=== PATIENT | male | born 1995 | race Caucasian/White ===

== ENCOUNTER 2018-03-27 18:41 | Emergency (ER) | payer SELFPAY ==
[~2018-03-27] VITALS: Ht 188 cm; Wt 107.7 kg
[2018-03-27 18:49] VITALS: BP 139/92; TEMP 98.6
[2018-03-27] MEDS ORDERED: AMOXICILLIN 50500 MG PO (19:49)
[2018-03-27] MEDS ORDERED: FLEXERIL 1010 MG/TAB PO (19:49)
[2018-03-27 19:54] VITALS: PULSE 91
== END 2018-03-27 19:56 | disposition home or self-care (01) ==
LOC: COL.ER 18:41
DX: K08.89 Other specified disorders of teeth and supporting structures (principal)

== ENCOUNTER 2018-08-25 19:10 | Emergency (ER) | payer SELFPAY ==
[~2018-08-25] VITALS: Ht 188 cm; Wt 115.0 kg
[~2018-08-25 19:10] MED LIST: AMOXICILLIN 50500 MG PO; FLEXERIL 1010 MG/TAB PO
[2018-08-25 19:15] VITALS: TEMP 97.2
[2018-08-25 19:46] LABS: BASO # 0.1 (0.0-0.2); EOS # 0.6 (0.0-0.7); EOS % 6.5 % (0-4.0); GRAN # 5.2 (1.4-6.5); GRAN % 57.5 % (42.2-75.2); HEMATOCRIT 45.8 % (42.0-52.0); HEMOGLOBIN 16.1 g/dl (13.5-18.0); LYMPH # 2.3 (1.2-3.4); LYMPH % 25.4 % (20.0-51.0); MEAN CELL VOLUME 90 fl (80.0-100.0); MEAN CORPUSCULAR HEMOGLOBIN 32 pg (27.0-31.0); MEAN CORPUSCULAR HGB CONC 35 g/dl (33.0-37.0); MEAN PLATELET VOLUME 11.4 fl (7.4-10.4); MONO # 0.9 (0.1-0.6); MONO % 9.4 % (1.7-9.3); PLATELET COUNT 225 K/mm3 (130-400); RED BLOOD COUNT 5.07 M/mm3 (4.20-5.60); REDCELL DISTRIBUTION WIDTH-CV 12.6 % (11.5-14.5)
[2018-08-25 20:00] LABS: ALBUMIN 4.4 gm/dL (3.5-5.0); BILIRUBIN,TOTAL 0.5 mg/dL (0.0-1.0); CALCIUM 9.4 mg/dL (8.4-10.2); CREATININE, serum 0.94 mg/dL (0.66-1.25); TOTAL PROTEIN 7.6 gm/dL (6.4-8.2)
[2018-08-25] MEDS ORDERED: PROTONIX 40MG T40 MG PO (20:13)
[2018-08-25] MEDS ORDERED: CARAFATE 1GM1 G PO (20:13)
[2018-08-25 20:44] VITALS: BP 132/66; PULSE 69
== END 2018-08-25 20:45 | disposition home or self-care (01) ==
LOC: COL.ER 19:10
PROVIDERS: Emergency Medicine
DX: R10.13 Epigastric pain (principal); F17.210 Nicotine dependence, cigarettes, uncomplicated; Z90.49 Acquired absence of other specified parts of digestive tract
CPT/HCPCS: C9113; J1885; J2405; J7030

== ENCOUNTER 2019-04-29 16:22 | Emergency (ER) | payer SELFPAY ==
[~2019-04-29] VITALS: Ht 188 cm; Wt 119.5 kg
[~2019-04-29 16:22] MED LIST changes: +CARAFATE 1GM1 G PO; +PROTONIX 40MG T40 MG PO
[2019-04-29 17:07] VITALS: BP 113/72; TEMP 101.6
[2019-04-29 17:33] LABS: STREP SCREEN POSITIVE
[2019-04-29 19:05] VITALS: PULSE 91
== END 2019-04-29 19:24 | disposition home or self-care (01) ==
LOC: COL.ER 16:22
PROVIDERS: Emergency Medicine
DX: J02.0 Streptococcal pharyngitis (principal); Z90.49 Acquired absence of other specified parts of digestive tract
CPT/HCPCS: J0561

== ENCOUNTER 2019-05-04 11:46 | Emergency (ER) | payer SELFPAY ==
[~2019-05-04] VITALS: Ht 188 cm; Wt 119.5 kg
[2019-05-04 12:03] VITALS: BP 131/85
[2019-05-04 12:57] LABS: STREP SCREEN NEGATIVE
[2019-05-04 13:07] LABS: MONOSCREEN NEGATIVE
[2019-05-04] MEDS ORDERED: MEDROL 4MG DOSPA4 MG PO (13:23)
[2019-05-04 13:33] VITALS: PULSE 79; TEMP 98
== END 2019-05-04 13:33 | disposition home or self-care (01) ==
LOC: COL.ER 11:46
PROVIDERS: Physician Assistant
DX: J06.9 Acute upper respiratory infection, unspecified (principal); J03.90 Acute tonsillitis, unspecified; J04.0 Acute laryngitis
CPT/HCPCS: J1885

== ENCOUNTER 2019-08-28 14:05 | Emergency (ER) | payer SELFPAY ==
[~2019-08-28] VITALS: Ht 188 cm; Wt 117.7 kg
[~2019-08-28 14:05] MED LIST changes: +MEDROL 4MG DOSPA4 MG PO
[2019-08-28] MEDS ORDERED: AMOXICILLIN875 MG PO (15:50)
[2019-08-28] MEDS ORDERED: NORCO 325 MG-51 TAB PO (15:50)
[2019-08-28 16:07] VITALS: BP 136/98; PULSE 69; TEMP 98.4
== END 2019-08-28 16:08 | disposition home or self-care (01) ==
LOC: COL.ER 14:05
DX: K02.9 Dental caries, unspecified (principal); Z90.89 Acquired absence of other organs
CPT/HCPCS: J1885

== ENCOUNTER 2019-09-17 15:49 | Emergency (ER) | payer SELFPAY ==
[~2019-09-17] VITALS: Ht 188 cm; Wt 113.2 kg
[~2019-09-17 15:49] MED LIST changes: +AMOXICILLIN875 MG PO; +NORCO 325 MG-51 TAB PO
[2019-09-17 16:00] VITALS: BP 109/68; TEMP 99.1
[2019-09-17 16:45] LABS: BASO % 0.2 % (0.0-2.0); EOS % 0.3 % (0-4.0); GRAN % 88.1 % (42.2-75.2); HEMATOCRIT 49.9 % (42.0-52.0); HEMOGLOBIN 17.4 g/dl (13.5-18.0); LYMPH # 0.6 (1.2-3.4); LYMPH % 5.7 % (20.0-51.0); MEAN CELL VOLUME 89 fl (80.0-100.0); MEAN CORPUSCULAR HEMOGLOBIN 31 pg (27.0-31.0); MEAN CORPUSCULAR HGB CONC 35 g/dl (33.0-37.0); MEAN PLATELET VOLUME 11.1 fl (7.4-10.4); MONO # 0.6 (0.1-0.6); MONO % 5.4 % (1.7-9.3); PLATELET COUNT 256 K/mm3 (130-400); REDCELL DISTRIBUTION WIDTH-CV 12.9 % (11.5-14.5)
[2019-09-17 16:59] LABS: COLLECTION METHOD CLEAN CATCH
[2019-09-17 16:59] LABS: ALBUMIN 4.3 gm/dL (3.5-5.0); BILIRUBIN,TOTAL 0.6 mg/dL (0.0-1.0); C-REACTIVE PROTEIN 0.9 mg/dL (0.0-0.9); CALCIUM 9.1 mg/dL (8.4-10.2); CREATININE, serum 1.04 (0.66-1.25); POTASSIUM 4.2 mmol/L (3.4-5.0); TOTAL PROTEIN 7.2 gm/dL (6.4-8.2)
[2019-09-17 17:16] LABS: MUCOUS Present /lpf; PH 5 (5-8); SQUAMOUS EPITHELIAL None Seen /hpf; URINE APPEARANCE Hazy; URINE BACTERIA None Seen /hpf; URINE BILIRUBIN Positive (NEGATIVE); URINE BLOOD Negative (NEGATIVE); URINE COLOR Amber; URINE GLUCOSE Negative (NEGATIVE); URINE KETONE 2+ (NEGATIVE); URINE LEUKOCYTE ESTERASE Negative (NEGATIVE); URINE NITRATE Negative (NEGATIVE); URINE PROTEIN(semi-quant) 1+ (NEGATIVE); URINE RBC 0-2 /hpf; URINE UROBILINOGEN Negative (NEGATIVE)
[2019-09-17] MEDS ORDERED: ZOFRAN ODT4 MG PO (17:39)
[2019-09-17 18:11] VITALS: PULSE 89
== END 2019-09-17 18:11 | disposition home or self-care (01) ==
LOC: COL.ER 15:49
PROVIDERS: Family Medicine
DX: R11.10 Vomiting, unspecified (principal); E86.9 Volume depletion, unspecified; Z90.89 Acquired absence of other organs
CPT/HCPCS: J2405; J7030; J7120

== ENCOUNTER 2019-11-10 20:28 | Emergency (ER) | payer SELFPAY ==
[~2019-11-10] VITALS: Ht 188 cm; Wt 112.7 kg
[~2019-11-10 20:28] MED LIST changes: +ZOFRAN ODT4 MG PO
[2019-11-10] MEDS ORDERED: TAMIFLU 75MG75 MG PO (21:39)
[2019-11-10 21:55] LABS: STREP SCREEN NEGATIVE
[2019-11-10 22:48] VITALS: BP 122/80; PULSE 95; TEMP 99
== END 2019-11-10 23:05 | disposition home or self-care (01) ==
LOC: COL.ER 20:28
PROVIDERS: Physician Assistant
DX: J10.1 Influenza due to other identified influenza virus with other respiratory manifestations (principal)

== ENCOUNTER 2020-02-02 03:26 | Emergency (ER) | payer SELFPAY ==
[~2020-02-02] VITALS: Ht 188 cm; Wt 114.1 kg
[~2020-02-02 03:26] MED LIST changes: +TAMIFLU 75MG75 MG PO
[2020-02-02 03:29] VITALS: BP 159/91; TEMP 97.3
[2020-02-02] MEDS ORDERED: AMOXICILLIN 50500 MG PO (04:20)
[2020-02-02 04:32] VITALS: PULSE 75
== END 2020-02-02 04:36 | disposition home or self-care (01) ==
LOC: COL.ER 03:26
DX: K02.9 Dental caries, unspecified (principal)

== ENCOUNTER 2021-03-04 22:07 | Emergency (ER) | payer SELFPAY ==
[~2021-03-04] VITALS: Ht 188 cm; Wt 113.6 kg
[2021-03-05] MEDS ORDERED: AMOXICILLIN 50500 MG PO (01:22)
[2021-03-05] MEDS ORDERED: NORCO 325 MG-51 TAB PO (01:22)
[2021-03-05 01:48] VITALS: BP 130/100; PULSE 83; TEMP 97.3
== END 2021-03-05 01:49 | disposition home or self-care (01) ==
LOC: COL.ER 22:07
DX: K04.7 Periapical abscess without sinus (principal)

== ENCOUNTER 2021-03-16 19:44 | Emergency (ER) | payer SELFPAY ==
[~2021-03-16] VITALS: Ht 188 cm; Wt 111.4 kg
[2021-03-16 19:48] VITALS: TEMP 98.5
[2021-03-16] MEDS ORDERED: CLEOCIN HCL300 MG PO (20:16)
[2021-03-16 20:22] VITALS: BP 128/78; PULSE 84
== END 2021-03-16 20:22 | disposition home or self-care (01) ==
LOC: COL.ER 19:44
DX: K04.7 Periapical abscess without sinus (principal); Z90.49 Acquired absence of other specified parts of digestive tract

== ENCOUNTER 2021-07-19 12:01 | Emergency (ER) | payer SELFPAY ==
[~2021-07-19] VITALS: Ht 188 cm; Wt 113.6 kg
[~2021-07-19 12:01] MED LIST changes: +CLEOCIN HCL300 MG PO
[2021-07-19 12:06] VITALS: TEMP 98.4
[2021-07-19 12:42] LABS: BASO # 0.1 (0.0-0.2); BASO % 0.7 % (0.0-2.0); EOS # 0.3 (0.0-0.7); EOS % 3.8 % (0-4.0); GRAN # 4.8 (1.4-6.5); GRAN % 69.8 % (42.2-75.2); HEMATOCRIT 44.3 % (42.0-52.0); HEMOGLOBIN 15.3 g/dl (13.5-18.0); LYMPH # 1.2 (1.2-3.4); LYMPH % 17.5 % (20.0-51.0); MEAN CELL VOLUME 90 fl (80.0-100.0); MEAN CORPUSCULAR HEMOGLOBIN 31 pg (27.0-31.0); MEAN CORPUSCULAR HGB CONC 35 g/dl (33.0-37.0); MEAN PLATELET VOLUME 11.5 fl (7.4-10.4); MONO # 0.5 (0.1-0.6); MONO % 7.9 % (1.7-9.3); PLATELET COUNT 205 K/mm3 (130-400); RED BLOOD COUNT 4.94 M/mm3 (4.20-5.60); REDCELL DISTRIBUTION WIDTH-CV 13.3 % (11.5-14.5)
[2021-07-19 12:55] LABS: ALBUMIN 3.5 gm/dL (3.5-5.0); BILIRUBIN,TOTAL 0.6 mg/dL (0.0-1.0); CALCIUM 8.5 mg/dL (8.4-10.2); CREATININE, serum 0.94 (0.66-1.25); POTASSIUM 4.4 mmol/L (3.4-5.0); TOTAL PROTEIN 5.7 gm/dL (6.4-8.2)
[2021-07-19 13:25] VITALS: BP 120/62; PULSE 80
== END 2021-07-19 13:30 | disposition home or self-care (01) ==
LOC: COL.ER 12:01
PROVIDERS: Emergency Medicine
DX: S06.0X9A Concussion with loss of consciousness of unspecified duration, initial encounter (principal); K04.7 Periapical abscess without sinus; W01.198A Fall on same level from slipping, tripping and stumbling with subsequent striking against other object, initial encounter

== ENCOUNTER 2021-11-30 15:40 | Emergency (ER) | payer SELFPAY ==
[~2021-11-30] VITALS: Ht 188 cm; Wt 120.0 kg
[2021-11-30 17:35] VITALS: BP 117/78; PULSE 102; TEMP 100.1
== END 2021-11-30 19:23 | disposition left against medical advice (07) ==
LOC: COL.ER 15:40
DX: R53.81 Other malaise (principal)